=== PATIENT | male | born 1970 | race Caucasian/White ===

== ENCOUNTER 2016-10-02 21:09 | Emergency (ER) | payer MEDICAID, OTHER ==
[2016-10-02 21:10] VITALS: BMI 29.0
[2016-10-02 21:21] VITALS: RESP 16
[2016-10-02 22:37] LABS: BASO # 0.1 K/uL (0.0-0.2); BASO % 0.5 % (0.0-2.0); EOS # 0.5 K/uL (0.0-0.7); EOS % 3.9 % (0.0-4.0); HEMATOCRIT 40.7 % (35.0-51.0); LYMPH # 1.8 K/uL (1.0-4.3); LYMPH % 15.7 % (20.0-40.0); MEAN CORPUSCULAR HEMOGLOBIN 31.3 pg (27.0-31.0); MEAN CORPUSCULAR HGB CONC 33.9 g/dL (33.0-37.0); MONO # 1.3 K/uL (0.0-0.8); MONO % 10.9 % (0.0-10.0); RED CELL DISTRIBUTION WIDTH 12.5 % (11.5-14.5)
[2016-10-02 22:38] LABS: MEAN CELL VOLUME 92.3 fL (80.0-94.0); WHITE BLOOD COUNT 11.8 K/uL (4.8-10.8)
[2016-10-02 22:42] LABS: CHLORIDE 99 mmol/L (98-107); SODIUM 137 mmol/L (132-148)
[2016-10-02 22:43] LABS: POTASSIUM 3.5 mmol/L (3.6-5.2)
[2016-10-02 22:45] LABS: PARTIAL THROMBOPLASTIN TIME 28 SECONDS (21-34)
[2016-10-02 22:45] LABS: ALB/GLOB RATIO 1.4 (1.0-2.1); ALKALINE PHOSPHATASE 53 U/L (38-126); ALT/SGPT 54 U/L (21-72); AST/SGOT 32 U/L (17-59); BILIRUBIN,TOTAL 0.5 mg/dL (0.2-1.3); BLOOD UREA NITROGEN 11 mg/dL (9-20); CARBON DIOXIDE 23 mmol/L (22-30); GFR AFRICAN-AMERICAN > 60; GLUCOSE,RANDOM 88 mg/dL (75-110); TOTAL PROTEIN 7.1 g/dL (6.3-8.3)
[2016-10-02 22:46] LABS: CALCIUM 8.6 mg/dl (8.6-10.4)
[2016-10-02 22:52] LABS: URINE BILIRUBIN NEGATIVE (NEGATIVE); URINE BLOOD NEGATIVE (NEGATIVE); URINE COLOR Straw (YELLOW); URINE GLUCOSE (UA) NORMAL (Normal); URINE KETONE NEGATIVE (NEGATIVE); URINE LEUKOCYTE ESTERASE NEG Leu/uL (Negative); URINE PROTEIN NEGATIVE (NEGATIVE); URINE UROBILINOGEN NORMAL mg/dL (0.2-1.0); WBC URINE 1 /hpf (0-5)
--- NOTE | 2016-10-02 23:34 | C.PDOC ---
History Of Present Illness Pt c/o pain at multiple sites, including trigger points in chest, back and hip. Time Seen by Provider: 10/02/16 21:55 History Per: Patient Onset/Duration Of Symptoms: Days (about 1 week) Current Symptoms Are (Timing): Still Present Severity: Moderate Quality: Sharp, "Pain" Modifying Factors: Other Indicated Below Exacerbating Factors: Turning, Movement Additional History Per: Prior Records Past Medical History Reviewed: Historical Data, Nursing Documentation, Vital Signs Vital Signs: Last Vital Signs Temp 98 F 10/02/16 21:13 Pulse 88 10/02/16 21:13 Resp 16 10/02/16 21:13 BP 154/93 H 10/02/16 21:13 Pulse Ox 97 10/02/16 21:13 - Medical History PMH: Anxiety, HTN, Hypercholesterolemia Comment Only: Asthma (at young age) - [facility] Procedures ALCOHOL DETOXIFICATION (12/16/14) VACCINATION NEC (03/03/14) Family History: States: Unknown Family Hx - Social History Hx Tobacco Use: Yes Hx Alcohol Use: Yes (stopped 2 weeks ago) Hx Substance Use: Yes - Immunization History Hx Tetanus Toxoid Vaccination: No Hx Influenza Vaccination: Yes Hx Pneumococcal Vaccination: No Review Of Systems Except As Marked, All Systems Reviewed And Found Negative. Constitutional: Negative for: Fever, Weakness Cardiovascular: Positive for: Chest Pain Respiratory: Negative for: Shortness of Breath, Hemoptysis Gastrointestinal: Negative for: Nausea, Vomiting, Abdominal Pain Musculoskeletal: Positive for: Back Pain. Negative for: Neck Pain Skin: Negative for: Rash Neurological: Negative for: Weakness, Numbness, Seizures, Altered Mental Status Physical Exam - Physical Exam Appears: Non-toxic, No Acute Distress Skin: Normal Color, Warm, Dry, No Rash Head: Atraumatic, Normacephalic Eye(s): bilateral: PERRL, EOMI Neck: Normal ROM, Supple Chest: Symmetrical, No Deformity, Tenderness (small point on chest wall) Cardiovascular: Rhythm Regular Respiratory: Normal Breath Sounds, No Accessory Muscle Use Gastrointestinal/Abdominal: Soft, No Tenderness Back: Normal Inspection, No CVA Tenderness, No Vertebral Tenderness, Paraspinal Tenderness (small point) Extremity: Normal ROM, No Pedal Edema, No Calf Tenderness Neurological/Psych: Oriented x3, Normal Motor, Normal Sensation ED Course And Treatment - Laboratory Results Result Diagrams: 10/02/16 22:27 10/02/16 22:03 Lab Interpretation: No Acute Changes ECG: Interpreted By Me, Viewed By Me ECG Rhythm: Sinus Rhythm, Nonspecific Changes ECG Interpretation: No Acute Changes Rate From EC O2 Sat by Pulse Oximetry: 97 Pulse Ox Interpretation: Normal - Radiology CXR: Interpreted by Me, Viewed By Me CXR Interpretation: Yes: No Acute Disease, Heart Size (wnl), Mediastinum (wnl) Reassessment Condition: Improved Disposition Counseled Patient/Family Regarding: Studies Performed, Diagnosis, Need For Followup, Rx Given - Disposition Referrals: [facility] [Outside] Disposition: HOME/ ROUTINE Disposition Time: 23:37 Condition: IMPROVED Additional Instructions: Follow up with your doctor or in the clinic this week for further evaluation and treatment. Return to the ER if you develop shortness of breath, dizziness, worsening of symptoms or if you have any other concerns. Prescriptions: Naproxen [Naprosyn] 1 tab PO BID PRN #20 tab PRN Reason: Pain Instructions: Musculoskeletal Pain (ED) Print Language: HUNGARIAN - Clinical Impression Clinical Impression: Musculoskeletal pain
[2016-10-03 00:05] VITALS: BP 122/83; PULSE 71; TEMP 98.1; O2SAT 99
--- NOTE | 2016-10-03 08:32 | RAD ---
PROCEDURE: CHEST RADIOGRAPH, 1 VIEW HISTORY: Chest pain COMPARISON: None available. FINDINGS: LUNGS: Mild linear atelectasis at the left lung base. PLEURA: No pneumothorax or pleural fluid seen. CARDIOVASCULAR: Normal. OSSEOUS STRUCTURES: No significant abnormalities. VISUALIZED UPPER ABDOMEN: Normal. OTHER FINDINGS: None. IMPRESSION: Mild linear atelectasis at the left lung base.
--- NOTE | 2016-10-07 15:27 | CARD ---
APPROVED REPORT EKG Measurement Heart [id number] <Conclusion> Normal sinus rhythm Incomplete right bundle branch block Borderline ECG
== END 2016-10-02 23:45 | disposition home or self-care (01) ==
LOC: C.ER 21:09
DX: M79.1 Myalgia (principal)
CPT/HCPCS: 71010; 80053; 81001; 83880; 84484; 85025; 85378; 85610; 85730; 93005; 99284; G0480

== ENCOUNTER 2016-10-05 11:39 | Emergency (ER) | payer MEDICAID, OTHER ==
[2016-10-05 11:39] VITALS: BMI 29.0
[2016-10-05] MEDS ORDERED: Aspirin 325 mg EC Tablets PO STA (12:06)
[2016-10-05] MEDS ORDERED: Aspirin 325 mg EC Tablets PO ONE (12:21)
[2016-10-05 12:26] LABS: BASO # 0.1 K/uL (0.0-0.2); BASO % 0.9 % (0.0-2.0); EOS # 0.4 K/uL (0.0-0.7); EOS % 5.1 % (0.0-4.0); HEMATOCRIT 42.3 % (35.0-51.0); LYMPH # 1.3 K/uL (1.0-4.3); LYMPH % 17.3 % (20.0-40.0); MEAN CELL VOLUME 92.9 fL (80.0-94.0); MEAN CORPUSCULAR HEMOGLOBIN 30.5 pg (27.0-31.0); MEAN CORPUSCULAR HGB CONC 32.9 g/dL (33.0-37.0); MEAN PLATELET VOLUME 8.6 fL (7.2-11.7); MONO # 0.7 K/uL (0.0-0.8); MONO % 8.7 % (0.0-10.0); NRBC % 0.1 % (0.0-2.0); RED CELL DISTRIBUTION WIDTH 12.4 % (11.5-14.5); WHITE BLOOD COUNT 7.5 K/uL (4.8-10.8)
[2016-10-05 12:31] LABS: CHLORIDE 104 mmol/L (98-107); POTASSIUM 3.7 mmol/L (3.6-5.2); SODIUM 141 mmol/L (132-148)
[2016-10-05 12:33] LABS: ALB/GLOB RATIO 1.2 (1.0-2.1); ALKALINE PHOSPHATASE 51 U/L (38-126); AST/SGOT 27 U/L (17-59); BILIRUBIN,TOTAL 0.6 mg/dL (0.2-1.3); CARBON DIOXIDE 23 mmol/L (22-30); GFR AFRICAN-AMERICAN > 60; TOTAL PROTEIN 7.2 g/dL (6.3-8.3)
[2016-10-05 12:34] LABS: ALT/SGPT 46 U/L (21-72); BLOOD UREA NITROGEN 11 mg/dL (9-20); CALCIUM 8.6 mg/dl (8.6-10.4); GLUCOSE,RANDOM 99 mg/dL (75-110)
[2016-10-05 12:55] LABS: RBC URINE 1 /hpf (0-3); URINE BACTERIA RARE (<OCC); URINE BILIRUBIN NEGATIVE (NEGATIVE); URINE BLOOD NEGATIVE (NEGATIVE); URINE COLOR Yellow (YELLOW); URINE GLUCOSE (UA) NORMAL (Normal); URINE KETONE NEGATIVE (NEGATIVE); URINE LEUKOCYTE ESTERASE NEG Leu/uL (Negative); URINE PROTEIN NEGATIVE (NEGATIVE); WBC URINE < 1 /hpf (0-5)
[2016-10-05] MEDS ORDERED: Iodixanol 320 MG/ML 100 ML BOTTLE IV ONE (12:59)
--- NOTE | 2016-10-05 13:18 | C.PDOC ---
History Of Present Illness 46 y/o male presents to the ED with complains of intermittent chest pain and left arm pain for the past 2 weeks. Pt denies SOB, abdominal pain, nausea, vomiting or any other complaints. PMHx thoracic aneurysm on CT, no follow up with PMD. Chief Complaint (Nursing): Chest Pain History Per: Patient History/Exam Limitations: no limitations Onset/Duration Of Symptoms: Days, Intermittent Episodes Current Symptoms Are (Timing): Still Present Severity: Mild Quality: "Pain" Alleviating Factors: None Recent travel outside of the [place]: No Past Medical History Reviewed: Historical Data, Nursing Documentation, Vital Signs Vital Signs: Last Vital Signs Temp 98.0 F 10/05/16 15:00 Pulse 74 10/05/16 15:00 Resp 16 10/05/16 15:00 BP 145/95 H 10/05/16 15:00 Pulse Ox 97 10/05/16 15:00 - Medical History PMH: Anxiety, HTN, Hypercholesterolemia Comment Only: Asthma (at young age) - [facility] Procedures ALCOHOL DETOXIFICATION (12/16/14) VACCINATION NEC (03/03/14) Family History: States: Unknown Family Hx - Social History Hx Tobacco Use: Yes Hx Alcohol Use: Yes (stopped 2 weeks ago) Hx Substance Use: Yes - Immunization History Hx Tetanus Toxoid Vaccination: No Hx Influenza Vaccination: Yes Hx Pneumococcal Vaccination: No Review Of Systems Except As Marked, All Systems Reviewed And Found Negative. Constitutional: Negative for: Fever Cardiovascular: Positive for: Chest Pain Respiratory: Negative for: Shortness of Breath Gastrointestinal: Negative for: Nausea, Vomiting, Abdominal Pain Musculoskeletal: Positive for: Arm Pain (left) Physical Exam - Physical Exam Appears: Non-toxic, No Acute Distress Skin: Warm, Dry, No Rash Head: Atraumatic, Normacephalic Neck: Normal ROM, Supple Chest: Symmetrical, No Tenderness Cardiovascular: Rhythm Regular, No Murmur Respiratory: Normal Breath Sounds, No Rales, No Rhonchi, No Wheezing Gastrointestinal/Abdominal: Soft, No Tenderness Extremity: No Pedal Edema Extremity: Bilateral: Atraumatic Neurological/Psych: Oriented x3, Normal Speech ED Course And Treatment - Laboratory Results Result Diagrams: 10/05/16 12:19 10/05/16 12:19 ECG: Interpreted By Me, Viewed By Me ECG Rhythm: Sinus Rhythm Interpretation Of ECst degree AV block, normal axis and intervals Rate From EC (BPM) O2 Sat by Pulse Oximetry: 98 (on room air) Progress Note: Plan: CTA chest, EKG, labs, CXR, aspirin, morphine Disposition - Disposition Referrals: [facility] [Outside] [facility] [Outside] Disposition: HOME/ ROUTINE Disposition Time: 15:00 Condition: IMPROVED Additional Instructions: Thank you for letting us take care of you today. Your provider was Dr. Woods. You were treated for non-cardiac chest pain. The emergency medical care you received today was directed at your acute symptoms. If you were prescribed any medication, please fill it and take as directed. It may take several days for your symptoms to resolve. Return to the Emergency Department if your symptoms worsen, do not improve, or if you have any other problems. Please contact your doctor or call one of the physicians/clinics you have been referred to that are listed on the Patient Visit Information form that is included in your discharge packet. Bring any paperwork you were given at discharge with you along with any medications you are taking to your follow up visit. Our treatment cannot replace ongoing medical care by a primary care provider (PCP) outside of the emergency department. Thank you for allowing the [facility] team to be part of your care today. Follow up with the clinic in 2-3 days to be re-evaluated. Prescriptions: Cyclobenzaprine [Cyclobenzaprine HCl] 10 mg PO Q8 PRN #20 tab PRN Reason: Muscle Spasm Ibuprofen [Motrin] 600 mg PO Q6 PRN #20 tab PRN Reason: Pain, Moderate (4-7) Instructions: Noncardiac Chest Pain (ED) - Clinical Impression Clinical Impression: Non-cardiac chest pain - Scribe Statement The provider has reviewed the documentation as recorded by the Magi Harden Provider Attestation: All medical record entries made by the Magi were at my direction and personally dictated by me. I have reviewed the chart and agree that the record accurately reflects my personal performance of the history, physical exam, medical decision making, and the department course for this patient. I have also personally directed, reviewed, and agree with the discharge instructions and disposition.
--- NOTE | 2016-10-05 14:40 | CT ---
CT angio chest, abdomen, pelvis with IV Indication: Chest pain Comparison: CT angio chest, abdomen, pelvis performed 02/28/16 Technique: Contrast dose: 100 cc visipaque 320 Total exam DLP: Axial computed tomographic angiogram images of the abdomen and pelvis were performed after bolus administration of nonionic intravenous contrast. Sagittal coronal reformatted images were generated and reviewed. This CT exam was performed using 1 or more of the falling dose reduction techniques: Automated exposure control, adjustment of the MAA and/or kV according to patient size, and/or use of iterative reconstruction technique. Findings: Limited views of the inferior thorax appear unremarkable without visible pleural effusion or pneumothorax. Filling defect involving the right subclavian and superior vena cava favored to reflect admixture artifact however thrombus cannot be excluded. Ascending aortic aneurysm measures approximately 4.8 cm in AP dimension, stable when remeasured in a similar position. There is normal course and contour of the abdominal aorta and common iliac arteries. The celiac artery origin is widely patent. The superior mesenteric artery origin is widely patent. The inferior mesenteric artery origin is patent. Renal arteries identified bilaterally, both widely patent. No large central pulmonary embolus. Bibasilar atelectasis. No pleural effusion or pneumothorax. No suspicious pulmonary nodule identified measuring greater than 5 mm. Hypoattenuation of the liver consistent with hepatic steatosis. 1.3 cm left adrenal gland nodule measures approximately 11 Hounsfield units on precontrast images and 32 Hounsfield units postcontrast, indeterminate. The pancreas, spleen, right adrenal gland, and gallbladder appear unremarkable. The kidneys enhance symmetrically without evidence of hydronephrosis or obstructing renal calculi. No enlarged abdominal lymphadenopathy is identified. Visualized bowel loops appear within normal limits of caliber without evidence of obstruction. Focal wall thickening of the sigmoid colon with adjacent inflammatory changes and diverticula consistent with acute diverticulitis. The appendix appears normal. No inflammatory changes are seen in the right lower quadrant to suggest acute appendicitis. No definite free air. The urinary bladder appears unremarkable. The prostate measures approximately 4.0 x 4.5 cm. No significant pelvic free fluid is identified. No acute osseous abnormality is identified. Impression: Ascending aortic aneurysm measures approximately 4.8 cm, grossly stable. Hepatic steatosis. Indeterminate enhancing 1.3 cm left adrenal gland nodule. Recommend dedicated cross-sectional imaging for further characterization. Filling defect involving the right subclavian and superior vena cava favored to reflect admixture artifact however thrombus cannot be excluded. Focal wall thickening of the sigmoid colon with adjacent inflammatory changes and diverticula consistent with acute diverticulitis. Recommend continued follow-up. Consider colonoscopy when clinically feasible if indicated. Additional incidental findings as above.
[2016-10-05 15:04] VITALS: BP 145/95; PULSE 74; RESP 16; TEMP 98
[2016-10-05 15:12] VITALS: O2SAT 98
--- NOTE | 2016-10-05 16:27 | RAD ---
HISTORY: chest pain COMPARISON: Chest x-ray performed 10/02/16 TECHNIQUE: Chest, one view. FINDINGS: LUNGS: Mild bibasilar atelectasis. Please note that chest x-ray has limited sensitivity for the detection of pulmonary masses. PLEURA: No significant pleural effusion identified. No definite pneumothorax . CARDIOVASCULAR: The cardiomediastinal silhouette appears within normal limits of size. OSSEOUS STRUCTURES: No acute osseous abnormality identified. VISUALIZED UPPER ABDOMEN: Elevation of the right hemidiaphragm. OTHER FINDINGS: None. IMPRESSION: Mild bibasilar atelectasis.
--- NOTE | 2016-10-07 15:26 | CARD ---
APPROVED REPORT EKG Measurement Heart [id number] <Conclusion> Sinus rhythm with 1st degree AV block Septal infarct, age undetermined Abnormal ECG
== END 2016-10-05 15:41 | disposition home or self-care (01) ==
LOC: C.ER 11:39
DX: R07.89 Other chest pain (principal)
CPT/HCPCS: 71010; 71270; 74175; 80053; 80324; 80345; 80346; 80349; 80353; 80358; 80361; 81001; 83992; 84484; 85025; 93005; 96374; 99285; J2270; Q9967